=== PATIENT | female | born 1970 | race Caucasian/White ===

== ENCOUNTER 2022-01-17 21:19 | Inpatient (IN) ==
[2022-01-17] MEDS ORDERED: Pantoprazole 40 MG VIAL IVP ONE (21:54)
[2022-01-17] MEDS ORDERED: Ondansetron 4 MG/2 ML VIAL IVP ONE (21:54)
[2022-01-17 22:19] LABS: Basophils # 0.1 K/mcL (0.0-0.2); Basophils % 0.4 %; Eosinophils # 0.3 K/mcL (0.0-0.6); Eosinophils % 2.1 %; Hematocrit 46.3 % (35.3-44.9); Hemoglobin 16.1 g/dL (11.5-15.4); Immature Granulocytes % 0.4 % (0-4); Lymphocytes # 2.1 K/mcL (0.6-4.6); Lymphocytes % 15.5 %; Mean Corpuscular HGB Conc 34.8 g/dL (31.6-35.5); Mean Corpuscular Hemoglobin 28.9 pg (28.0-33.3); Mean Platelet Volume 10.2 fL (9.4-12.4); Monocytes % 7.1 %; Platelet Count 312 K/mcL (140-400); Red Blood Count 5.58 M/mcL (3.82-4.97); Red Cell Distribution Width 14.4 % (11.5-14.5); Segmented Neutrophils % 74.5 %; White Blood Count 13.8 K/mcL (4.3-11.1)
[2022-01-17 22:21] LABS: Neutrophils # 10.3 K/mcL (1.6-8.9)
[2022-01-17 22:24] LABS: INR 1.1; Prothrombin Time 12.6 Seconds (9.4-12.1)
[2022-01-17] MEDS ORDERED: 0.9 % Sodium Chloride 1,000 ML IVC ONE (22:29)
[2022-01-17 22:37] LABS: Troponin I < 0.03 ng/mL (< 0.04)
[2022-01-17] MEDS ORDERED: Ketorolac 30 MG/ML VIAL IVP ONE (22:51)
[2022-01-17] MEDS ORDERED: Iopamidol - 370 500 ML MLS IVP ONE (22:51)
[2022-01-17 22:56] LABS: Alanine Aminotransferase 23 Units/L (7-52); Albumin 4.1 g/dL (3.5-5.7); Albumin/Globulin Ratio 1.1 (1.1-2.2); Alkaline Phosphatase 111 Units/L (34-104); Aspartate Amino Transferase 20 Units/L (13-39); BUN/Creatinine Ratio 23 (6-26); Bilirubin,Direct 0.2 mg/dL (0.0-0.2); Bilirubin,Indirect 0.3 mg/dL (0.0-1.0); Bilirubin,Total 0.5 mg/dL (0.3-1.0); Blood Urea Nitrogen 18 mg/dL (6-20); Carbon Dioxide 26 mEq/L (23-29); Chloride 101 mEq/L (98-107); Globulin 3.7 g/dL (2.4-3.5); Glucose 100 mg/dL (70-105); Lipase > 1800 Units/L (11-82); Osmolality,Calculated 288 (280-300); Potassium 2.8 mEq/L (3.5-5.1); Sodium 138 mEq/L (136-145); Total Protein 7.8 g/dL (6.4-8.9); eGFR For African Americans > 60 (> 60); eGFR For Non-African Americans > 60 (> 60)
[2022-01-18] MEDS ORDERED: *HR* HYDROmorphone (PF) 1 MG/ML SYRINGE IVP ONE (00:02)
[2022-01-18] MEDS ORDERED: 0.9 % Sodium Chloride 1,000 ML IVC ONE ×2 (00:02→03:13)
[2022-01-18] MEDS ORDERED: Ondansetron 4 MG/2 ML VIAL IVP PRN (01:06)
[2022-01-18] MEDS ORDERED: Naloxone 0.4 MG/ML INJ IVP PRN ×2 (01:06→03:13)
[2022-01-18] MEDS ORDERED: Ringers Solution, Lactated 1,000 ML IVC SCH (01:15)
[2022-01-18 02:46] LABS: BUN/Creatinine Ratio 21 (6-26); Blood Urea Nitrogen 17 mg/dL (6-20); Calcium 9.5 mg/dL (8.6-10.3); Carbon Dioxide 26 mEq/L (23-29); Chloride 104 mEq/L (98-107); Glucose 106 mg/dL (70-105); Osmolality,Calculated 290 (280-300); Potassium 3.3 mEq/L (3.5-5.1); Sodium 139 mEq/L (136-145); eGFR For African Americans > 60 (> 60); eGFR For Non-African Americans > 60 (> 60)
[2022-01-18 04:05] LABS: Bilirubin,Urine Negative (Negative); Blood,Urine Negative (Negative); Clarity,Urine Clear (Clear); Color,Urine Yellow (Yellow); Glucose,Urine (UA) Normal (Normal); Ketones,Urine Negative (Negative); Leukocyte Esterase,Urine Negative (Negative); Nitrite,Urine Negative (Negative); Protein,Urine 100 mg/dL (Neg-Trace); Urobilinogen,Urine Normal (Normal)
[2022-01-18 04:08] LABS: RBC,Urine 0-3 per hpf (0-3); Squamous Epithelial Cell,Urine Few per hpf (None-Few); WBC,Urine 0-3 per hpf (0-3)
[2022-01-18] MEDS: Ringers Solution, Lactated 1,000 ML IVC SCH ×3 (04:32→13:43)
[2022-01-18 05:40] LABS: Basophils # 0.1 K/mcL (0.0-0.2); Basophils % 0.5 %; Eosinophils # 0.4 K/mcL (0.0-0.6); Eosinophils % 3.5 %; Hematocrit 40.5 % (35.3-44.9); Hemoglobin 13.7 g/dL (11.5-15.4); Immature Granulocytes % 0.3 % (0-4); Lymphocytes # 2.2 K/mcL (0.6-4.6); Lymphocytes % 21.3 %; Mean Corpuscular HGB Conc 33.8 g/dL (31.6-35.5); Mean Corpuscular Hemoglobin 28.5 pg (28.0-33.3); Mean Corpuscular Volume 84.4 fL (83.0-100.0); Mean Platelet Volume 10.4 fL (9.4-12.4); Monocytes # 0.7 K/mcL (0.0-1.3); Monocytes % 6.9 %; Neutrophils # 6.9 K/mcL (1.6-8.9); Platelet Count 266 K/mcL (140-400); Red Cell Distribution Width 14.5 % (11.5-14.5); Segmented Neutrophils % 67.5 %; White Blood Count 10.2 K/mcL (4.3-11.1)
[2022-01-18 05:53] LABS: Chol/HDL Ratio 2.9 (0-4.9)
[2022-01-18] MEDS: levETIRAcetam 250 MG TABLET PO SCH ×2 (08:48→22:14)
[2022-01-18] MEDS ORDERED: hydroCHLOROthiazide 25 MG TABLET PO SCH (09:00)
[2022-01-18] MEDS: Pantoprazole 40 MG VIAL IVP SCH (10:59)
[2022-01-18] MEDS: 0.9 % Sodium Chloride w KCl 20 MEQ/1,000 ML MLS IVC SCH ×2 (11:06→19:00)
[2022-01-18 16:00] LABS: BUN/Creatinine Ratio 23 (6-26); Blood Urea Nitrogen 18 mg/dL (6-20); Calcium 8.9 mg/dL (8.6-10.3); Carbon Dioxide 24 mEq/L (23-29); Chloride 108 mEq/L (98-107); Glucose 81 mg/dL (70-105); Osmolality,Calculated 293 (280-300); Potassium 3.4 mEq/L (3.5-5.1); Sodium 141 mEq/L (136-145); eGFR For African Americans > 60 (> 60); eGFR For Non-African Americans > 60 (> 60)
[2022-01-18] MEDS: levoFLOXacin 750 MG/150 ML 750 MG/150 ML BAG IVPB SCH (17:05)
[2022-01-18] MEDS: Ibuprofen 600 MG TABLET PO PRN (18:29)
[2022-01-18] MEDS: Acetaminophen 325 MG TABLET PO PRN (22:14)
[2022-01-18] MEDS: Ondansetron 4 MG/2 ML VIAL IVP PRN (22:21)
[2022-01-19] MEDS: 0.9 % Sodium Chloride w KCl 20 MEQ/1,000 ML MLS IVC SCH ×3 (02:38→12:28)
[2022-01-19] MEDS: Ondansetron 4 MG/2 ML VIAL IVP PRN (04:49)
[2022-01-19 05:20] LABS: Hematocrit 40.4 % (35.3-44.9); Hemoglobin 13.8 g/dL (11.5-15.4); Mean Corpuscular HGB Conc 34.2 g/dL (31.6-35.5); Mean Corpuscular Hemoglobin 29.3 pg (28.0-33.3); Mean Corpuscular Volume 85.8 fL (83.0-100.0); Mean Platelet Volume 11.8 fL (9.4-12.4); Platelet Count 235 K/mcL (140-400); Red Blood Count 4.71 M/mcL (3.82-4.97); Red Cell Distribution Width 14.6 % (11.5-14.5)
[2022-01-19 05:45] LABS: Alanine Aminotransferase 20 Units/L (7-52); Albumin 3.3 g/dL (3.5-5.7); Albumin/Globulin Ratio 1.1 (1.1-2.2); Alkaline Phosphatase 88 Units/L (34-104); Aspartate Amino Transferase 21 Units/L (13-39); BUN/Creatinine Ratio 20 (6-26); Bilirubin,Total 0.4 mg/dL (0.3-1.0); Blood Urea Nitrogen 13 mg/dL (6-20); Calcium 8.6 mg/dL (8.6-10.3); Carbon Dioxide 22 mEq/L (23-29); Chloride 110 mEq/L (98-107); Globulin 2.9 g/dL (2.4-3.5); Glucose 71 mg/dL (70-105); Lipase 684 Units/L (11-82); Magnesium 1.7 mg/dL (1.6-2.6); Osmolality,Calculated 289 (280-300); Potassium 3.8 mEq/L (3.5-5.1); Sodium 140 mEq/L (136-145); Total Protein 6.2 g/dL (6.4-8.9); eGFR For African Americans > 60 (> 60); eGFR For Non-African Americans > 60 (> 60)
[2022-01-19] MEDS: Ibuprofen 600 MG TABLET PO PRN ×2 (09:23→16:47)
[2022-01-19] MEDS: levETIRAcetam 250 MG TABLET PO SCH ×2 (09:23→22:02)
[2022-01-19] MEDS: Pantoprazole 40 MG VIAL IVP SCH (09:23)
[2022-01-19] MEDS: Ondansetron ODT 4 MG TAB.RAPDIS SL PRN ×2 (11:22→16:47)
[2022-01-19] MEDS ORDERED: SUMAtriptan succinate 25 MG TABLET PO ONE (11:30)
[2022-01-19] MEDS: lisinopriL 20 MG TABLET PO SCH (11:36)
[2022-01-19] MEDS: levoFLOXacin 750 MG/150 ML 750 MG/150 ML BAG IVPB SCH (16:48)
[2022-01-19] MEDS: Acetaminophen 325 MG TABLET PO PRN (22:03)
[2022-01-20] MEDS: 0.9 % Sodium Chloride w KCl 20 MEQ/1,000 ML MLS IVC SCH (00:33)
[2022-01-20] MEDS: Ondansetron 4 MG/2 ML VIAL IVP PRN (00:38)
[2022-01-20 05:08] LABS: Hematocrit 40.1 % (35.3-44.9); Hemoglobin 13.1 g/dL (11.5-15.4); Mean Corpuscular HGB Conc 32.7 g/dL (31.6-35.5); Mean Corpuscular Hemoglobin 28.3 pg (28.0-33.3); Mean Corpuscular Volume 86.6 fL (83.0-100.0); Mean Platelet Volume 10.9 fL (9.4-12.4); Platelet Count 242 K/mcL (140-400); Red Blood Count 4.63 M/mcL (3.82-4.97); Red Cell Distribution Width 14.7 % (11.5-14.5); White Blood Count 7.8 K/mcL (4.3-11.1)
[2022-01-20 05:28] LABS: Alanine Aminotransferase 21 Units/L (7-52); Albumin 3.4 g/dL (3.5-5.7); Albumin/Globulin Ratio 1.2 (1.1-2.2); Alkaline Phosphatase 94 Units/L (34-104); Aspartate Amino Transferase 20 Units/L (13-39); BUN/Creatinine Ratio 14 (6-26); Bilirubin,Total 0.4 mg/dL (0.3-1.0); Blood Urea Nitrogen 9 mg/dL (6-20); Calcium 8.9 mg/dL (8.6-10.3); Carbon Dioxide 24 mEq/L (23-29); Chloride 109 mEq/L (98-107); Globulin 2.9 g/dL (2.4-3.5); Glucose 102 mg/dL (70-105); Lipase 142 Units/L (11-82); Magnesium 1.7 mg/dL (1.6-2.6); Osmolality,Calculated 289 (280-300); Potassium 3.8 mEq/L (3.5-5.1); Sodium 140 mEq/L (136-145); Total Protein 6.3 g/dL (6.4-8.9); eGFR For African Americans > 60 (> 60); eGFR For Non-African Americans > 60 (> 60)
[2022-01-20] MEDS: Ibuprofen 600 MG TABLET PO PRN (06:11)
[2022-01-20] MEDS: lisinopriL 20 MG TABLET PO SCH (09:23)
[2022-01-20] MEDS: levETIRAcetam 250 MG TABLET PO SCH ×2 (09:23→22:19)
[2022-01-20] MEDS: Pantoprazole 40 MG VIAL IVP SCH (09:23)
[2022-01-20] MEDS ORDERED: SUMAtriptan succinate 50 MG TABLET PO PRN (12:07)
[2022-01-20] MEDS: levoFLOXacin 750 MG/150 ML 750 MG/150 ML BAG IVPB SCH (17:05)
[2022-01-21 04:59] LABS: Hematocrit 39.4 % (35.3-44.9); Hemoglobin 13.4 g/dL (11.5-15.4); Mean Corpuscular Hemoglobin 29.1 pg (28.0-33.3); Mean Corpuscular Volume 85.5 fL (83.0-100.0); Mean Platelet Volume 11.1 fL (9.4-12.4); Platelet Count 252 K/mcL (140-400); Red Blood Count 4.61 M/mcL (3.82-4.97); Red Cell Distribution Width 14.4 % (11.5-14.5); White Blood Count 7.8 K/mcL (4.3-11.1)
[2022-01-21 05:11] LABS: BUN/Creatinine Ratio 10 (6-26); Blood Urea Nitrogen 8 mg/dL (6-20); Calcium 9.1 mg/dL (8.6-10.3); Carbon Dioxide 28 mEq/L (23-29); Chloride 106 mEq/L (98-107); Glucose 109 mg/dL (70-105); Lipase 112 Units/L (11-82); Magnesium 1.8 mg/dL (1.6-2.6); Osmolality,Calculated 289 (280-300); Potassium 3.5 mEq/L (3.5-5.1); Sodium 140 mEq/L (136-145); eGFR For African Americans > 60 (> 60); eGFR For Non-African Americans > 60 (> 60)
[2022-01-21 06:44] VITALS: RESP 16; O2SAT 95
[2022-01-21] MEDS: lisinopriL 20 MG TABLET PO SCH (09:16)
[2022-01-21] MEDS: Pantoprazole 40 MG VIAL IVP SCH (09:16)
[2022-01-21] MEDS: levETIRAcetam 250 MG TABLET PO SCH (09:17)
[2022-01-21 11:10] VITALS: BP 151/83; PULSE 73; TEMP 97.8
== END 2022-01-21 12:50 | disposition home or self-care (01) | DRG 440 ==
LOC: EMEROOGRE 21:19 → INPGRE 21:19
PROVIDERS: ADMIT Internal Medicine; ATTEND Family Medicine